=== PATIENT | male | born 1960 | race Caucasian/White ===

== ENCOUNTER 2016-06-02 08:43 | Emergency (ER) | payer OTHER ==
--- NOTE | 2016-06-02 09:02 | CPEKG ---
Heart Rate: 47 RR Interval: 1277 P-R Interval: 264 QRSD Interval: 94 QT Interval: 456 QTC Interval: 404 P [place]: 16 QRS [place]: -17 T Wave [place]: 4 EKG Severity - ABNORMAL ECG - EKG Impression: SINUS BRADYCARDIA EKG Impression: FIRST DEGREE AV BLOCK EKG Impression: BORDERLINE LEFT AXIS DEVIATION Electronically Signed By: Nika Briseno 02-Jun-2016 15:00:12
--- NOTE | 2016-06-02 09:04 | EDPHY ---
H & P Stated Complaint: IRREGULAR HR HPI/ROS: CHIEF COMPLAINT: Palpitations HISTORY OF PRESENT ILLNESS: complains of palpitations that started about 24 hours. he describes as a more forceful beat or palpitations. They are mostly regular, with a short duration of irregular beat. No pain of any kind during any of this. No nausea, vomiting or diaphoresis. The symptoms or unpredictable and have no real modifying factors. He went for a 4 mi jog during this without any change in the symptoms. He has no shortness of breath with this. No fever. No cough. No recent illness. He does not smoke. He has no previous cardiac coronary artery diagnoses. He does have hypertension that is well controlled, but notes that his blood pressure was somewhat elevated last night. He noted a highest systolic measurement of 156 mm. No other symptoms associated with this. No other modifying factors. Does note that his heart rate is normally low, he was 55 beats per minute when I was in the room. He said this is not abnormal for him. REVIEW OF SYSTEMS: Ten systems reviewed and are negative unless otherwise noted in the HPI EXAMINATION General Appearance: Alert, no distress Head: normocephalic, atraumatic Eyes: Pupils equal and round, no conjunctival pallor or injection . EOMs intact. ENT, Mouth: Mucous membranes moist . Uvula midline. No erythema or edema. Neck: Normal inspection, supple, non-tender Respiratory: Lungs are clear to auscultation . No wheezing, rhonchi or crackles. Cardiovascular: Bradycardic rate of 55 beats per minute. regular rhythm. No murmur. Pulses intact distally. Gastrointestinal: Abdomen is soft and nontender Back: non-tender, no bony abnormalities Neurological: A&O, nonfocal, normal gait Skin: Warm and dry, no rash Extremities: Nontender, no pedal edema Psychiatric: Mood and affect normal DIFFERENTIAL DIAGNOSES: Including but not limited to Palpitations, sinus bradycardia, PVCs, PACs, paroxysmal AFib, a flutter, electrolyte disturbance MDM: 9:15 a.m. palpitations without any chest pain. EKG is unremarkable with sinus bradycardia. No ischemia. There is a borderline first-degree block. Heart monitor while I was in the room showed 55 beats per minute with a regular rhythm. Laboratory studies and x-ray are pending at this time. 10:10 a.m. I have re-evaluated the patient. He is resting comfortably. Heart monitor still shows sinus bradycardia but he is awake, alert and conversing appropriately. He reassures me that this is normal heart rate for him. EKG shows sinus bradycardia with borderline first-degree block but no other findings. Laboratory studies are all well within normal limits. Chest x-ray is clear. We discussed discharge home with follow-up with Cardiology for further care. The patient and his spouse at bedside are comfortable with this plan. I have answered all his questions and he will be discharged home in stable condition. EKG: Interpreted by Dr. Briseno SUPERVISION: Patient was evaluated in conjunction with the supervising physician. Please see their note for details. Source: Patient Exam Limitations: No limitations - Personal History Current Tetanus/Diphtheria Vaccine: Unsure - Medical/Surgical History Hx Asthma: No Hx Chronic Respiratory Disease: No Hx Diabetes: No Hx Cardiac Disease: No Hx Renal Disease: No Hx Cirrhosis: No Hx Alcoholism: No Hx HIV/AIDS: No Hx Splenectomy or Spleen Trauma: No Other PMH: HTN - Social History Smoking Status: Never smoked Constitutional: Initial Vital Signs Temperature (C) 97.3 F 06/02/16 08:48 Heart Rate 60 06/02/16 08:48 Respiratory Rate 20 06/02/16 08:48 Blood Pressure 146/85 H 06/02/16 08:48 O2 Sat (%) 95 06/02/16 08:48 O2 Delivery Mode Room Air Allergies/Adverse Reactions: LONG Inhibitors Allergy (Verified 06/02/16 08:47) Penicillins Allergy (Verified 06/02/16 08:47) Sulfa (Sulfonamide Antibiotics) Allergy (Verified 06/02/16 08:46) Home Medications: Medication Instructions Recorded Hydrochlorothiazide 06/02/16 Medical Decision Making - Data Points Laboratory Results: Laboratory Results 06/02/16 09:08 06/02/16 09:08 06/02/16 06/02/16 06/02/16 09:08 09:08 09:08 WBC 4.77 10^3/uL 10^3/uL (3.80-9.50) RBC 5.19 10^6/uL 10^6/uL (4.40-6.38) Hgb 16.1 g/dL g/dL (13.7-17.5) Hct 45.3 % % (40.0-51.0) MCV 87.3 fL fL (81.5-99.8) MCH 31.0 pg pg (27.9-34.1) MCHC 35.5 g/dL g/dL (32.4-36.7) RDW 12.8 % % (11.5-15.2) Plt Count 218 10^3/uL 10^3/uL (150-400) MPV 10.0 fL fL (8.7-11.7) Neut % (Auto) 46.4 % % (39.3-74.2) Lymph % (Auto) 39.4 % % (15.0-45.0) Wood % (Auto) 8.8 % % (4.5-13.0) Eos % (Auto) 4.4 % % (0.6-7.6) Baso % (Auto) 0.8 % % (0.3-1.7) Nucleat RBC Rel Count 0.0 % % (0.0-0.2) Absolute Neuts (auto) 2.21 10^3/uL 10^3/uL (1.70-6.50) Absolute Lymphs (auto) 1.88 10^3/uL 10^3/uL (1.00-3.00) Absolute Monos (auto) 0.42 10^3/uL 10^3/uL (0.30-0.80) Absolute Eos (auto) 0.21 10^3/uL 10^3/uL (0.03-0.40) Absolute Basos (auto) 0.04 10^3/uL 10^3/uL (0.02-0.10) Absolute Nucleated RBC 0.00 10^3/uL 10^3/uL (0-0.01) Immature Gran % 0.2 % % (0.0-1.1) Immature Gran # 0.01 10^3/uL 10^3/uL (0.00-0.10) PT 13.0 SEC SEC (12.0-15.0) INR 0.99 (0.83-1.16) APTT 27.0 SEC SEC (23.0-38.0) Sodium 142 mEq/L mEq/L (134-144) Potassium 3.7 mEq/L mEq/L (3.5-5.2) Chloride 106 mEq/L mEq/L (97-110) Carbon Dioxide 25 mEq/l mEq/l (22-31) Anion Gap 11 mEq/L mEq/L (8-16) BUN 18 mg/dL mg/dL (7-23) Creatinine 1.2 mg/dL mg/dL (0.7-1.3) Estimated GFR > 60 Glucose 122 mg/dL H mg/dL (70-100) Calcium 10.1 mg/dL mg/dL (8.5-10.4) Phosphorus 2.6 mg/dL mg/dL (2.5-4.5) Magnesium 2.3 mg/dL mg/dL (1.6-2.3) Troponin I < 0.012 ng/mL ng/mL (0-0.034) NT-Pro-B Natriuret Pep 100 pg/mL pg/mL (0-125) TSH 2.170 uIU/mL uIU/mL (0.465-4.680) Departure - Departure Disposition: Home, Routine, Self-Care Clinical Impression: Intermittent palpitations, Sinus bradycardia Condition: Good Instructions: Palpitations (ED), Bradycardia (ED) Additional Instructions: Follow up with primary care physician and grading machine operator for definitive care. Return to ER for worsening symptoms, any chest pain, near syncope or syncope Referrals: Frantz Brito MD [Primary Care Provider] - As per Instructions Derrell Xie MD [Medical Doctor] - As per Instructions
[2016-06-02 09:17] LABS: % IMMATURE GRANULYOCYTES 0.2 % (0.0-1.1); ABSOLUTE IMMATURE GRANULOCYTES 0.01 10^3/uL (0.00-0.10); ADD DIFF? NO; ADD MORPH? NO; ADD SCAN? NO; ATYPICAL LYMPHOCYTE FLAG 10 (0-99); FRAGMENT RBC FLAG 0 (0-99); HEMATOCRIT 45.3 % (40.0-51.0); HEMOGLOBIN 16.1 g/dL (13.7-17.5); LEFT SHIFT FLG 0 (0-99); LIPEMIA HEMOLYSIS FLAG 90 (0-99); MEAN CELL HEMOGLOBIN CONCENTR. 35.5 g/dL (32.4-36.7); MEAN CELL VOLUME 87.3 fL (81.5-99.8); PLATELET CLUMPS FLAG 0 (0-99); PLATELET COUNT 218 10^3/uL (150-400); RED BLOOD CELL COUNT 5.19 10^6/uL (4.40-6.38); RED CELL DISTRIBUTION WIDTH 12.8 % (11.5-15.2)
[2016-06-02 09:30] LABS: INR 0.99 (0.83-1.16)
[2016-06-02 09:38] LABS: ANION GAP 11 mEq/L (8-16); CALCIUM 10.1 mg/dL (8.5-10.4); CARBON DIOXIDE 25 mEq/l (22-31); CHLORIDE 106 mEq/L (97-110); CREATININE 1.2 mg/dL (0.7-1.3); GLOMERULAR FILTRATION RATE > 60; GLUCOSE 122 mg/dL (70-100); MAGNESIUM 2.3 mg/dL (1.6-2.3); POTASSIUM 3.7 mEq/L (3.5-5.2); SODIUM 142 mEq/L (134-144)
[2016-06-02 09:46] LABS: TROPONIN I < 0.012 ng/mL (0-0.034)
[2016-06-02 10:38] VITALS: BP 124/79; PULSE 57; RESP 18; TEMP 98.8; O2SAT 96
== END 2016-06-02 10:37 | disposition home or self-care (01) ==
DX: R00.2 Palpitations (principal); R00.1 Bradycardia, unspecified; I10 Essential (primary) hypertension